=== PATIENT | female | born 1975 | race Caucasian/White ===

== ENCOUNTER 2019-01-08 14:57 | Inpatient (IN) ==
[2019-01-08] MEDS ORDERED: Isovue-370 500 ML BOTTLE IVP ONE (15:56)
--- NOTE | 2019-01-08 15:57 | Emergency Department Note ---
Disposition Clinical Impression: Lymphadenopathy, Abscess, Failure of outpatient treatment Cellulitis Qualifiers: Site of cellulitis: unspecified site Qualified Code(s): L03.90 - Cellulitis, unspecified Disposition: Still a Patient General Adult HPI - General Chief complaint: ED Wound/Laceration Stated complaint: Redness + Swelling @ Groin From [facility] Dr. Mesa Time Seen by Provider: 01/08/19 15:13 Source: patient Limitations: no limitations Nursing Notes Reviewed: Yes Vital Signs Reviewed: Yes - History of Present Illness HPI Narrative: Patient presenting to the ED with the chief complaint of left groin pain and infection. Patient reports that about 3 weeks ago. She noticed some lumps in her left groin. She had the area biopsied after seeing oncology because a CT scan at outside hospital showed that these were enlarged lymph nodes. There were concerned that she may have lymphoma. She has been complaining of night sweats, weight loss, early satiety. States that she has had subjective fever and chills with associated malaise and fatigue. States that despite the biopsy. She has been on Augmentin, which completed a few weeks ago and subsequently doxycycline and has taken 3 days worth without any improvement. She notices more pain and swelling in her groin and is now extending to her pubic symphysis. Denies any abdominal pain. She had had some scant vaginal bleeding, but states her periods are becoming very regular. States that she spoke with oncology and her biopsy results grew MRSA and she was instructed to come to the ER for admission for IV antibiotics. Pain Scale: 7 - Related Data Home Medications Medication Instructions Recorded Confirmed Meloxicam 15 mg PO DAILY 12/31/18 01/09/19 Omeprazole [PriLOSEC] 40 mg PO DAILY 12/31/18 01/09/19 Primidone [Mysoline] 100 mg PO BID 12/31/18 01/09/19 hydroCHLOROthiazide 25 mg PO DAILY 01/09/19 01/09/19 [Hydrochlorothiazide] Previous Rx's Medication Instructions Recorded Oxycodone HCl/Acetaminophen 1 - 2 each PO Q4H PRN 7 Days #84 12/31/18 [Percocet 5-325 mg Tablet] tablet Allergies Allergy/AdvReac Type Severity Reaction Status Date / Time No Known Allergies Allergy Verified 01/09/19 08:31 Review of Systems: As reviewed in the HPI. All other systems reviewed are negative or normal. Past Medical History - Past Medical History Attestation: Yes The following information was validated with the patient. Source: patient Medical history: Reports: hypertension Surgical history: Reports: cholecystectomy Psychiatric history: Reports: no psych history - Social History Smoking Status: Current every day smoker Smokeless Tobacco Status: No Alcohol use: Reports: occasionally Drug use: Reports: none Physical Exam CONSTITUTIONAL: [well appearing, alert and in no acute distress] EYES: [EOMI, clear conjunctiva, PERRLA] HENT: [Normocephalic, atraumatic, moist mucus membranes, normal oropharynx] NECK: [normal inspection, full ROM, trachea midline, no obvious swelling] PULMONARY: [normal lung sounds bilaterally, normal chest rise and fall, no respiratory distress or stridor, no wheezes, no rales, no rhonchi CARDIOVASCULAR: [regular rate, regular rhythm, normal heart sounds, no murmurs, distal extremities are warm and well perfused] GASTROINSTESTINAL: [soft, non-tender, non-rigid, non-distended, no guarding, no rebound, normal bowel sounds] GENITOURINARY/RECTAL: [deferred] NEUROLOGIC: [Alert, oriented x3, normal speech, moves all extremities] EXTREMITIES: [Normal inspection, full ROM, no tenderness, no pedal edema, normal capillary refill] MUSCULOSKELETAL: [no gross deformities, atraumatic] SKIN: [No cyanosis, no diaphoresis, normal color, warm, and the left groin. There are multiple enlarged lymph nodes and possible abscesses, there is no active drainage, one of the areas. Does have some fluctuance which does extend to records the pubic symphysis, there is no ecchymosis or crepitus, there is a small amount of erythema and cellulitis overlying the area.] PSYCHIATRIC: [normal mood and affect] - General Limitations: no limitations General appearance: alert, in no apparent distress Course Course Narrative: Patient will be signed out to the nighttime team pending CT and admission. Antibiotics and cultured order. Lab work is unremarkable. Vital Signs Temperature 98.0 F 01/08/19 14:59 Pulse Rate 99 01/08/19 14:59 Respiratory Rate 18 01/08/19 14:59 Blood Pressure 131/81 01/08/19 14:59 O2 Sat by Pulse Oximetry 99 01/08/19 14:59 Temperature 98.0 F 01/08/19 14:59 Pulse Rate 99 01/08/19 14:59 Respiratory Rate 18 01/08/19 14:59 Blood Pressure 131/81 01/08/19 14:59 O2 Sat by Pulse Oximetry 99 01/08/19 14:59 Oxygen Delivery Oxygen Delivery Room Air Medical Decision Making - Lab Data Result diagrams: 01/09/19 06:00 01/09/19 06:00 Lab Results 01/08/19 01/08/19 01/08/19 Range/Units 16:07 16:07 16:07 WBC 10.8 (4.3-11.1) K/mcL RBC 4.01 (3.82-4.97) M/mcL Hgb 12.5 (11.5-15.4) g/dL Hct 37.8 (35.3-44.9) % MCV 94.3 (83.0-100.0) fL MCH 31.2 (28.0-33.3) pg MCHC 33.1 (31.6-35.5) g/dL RDW 12.4 (11.5-14.5) % Plt Count 392 (140-400) K/mcL MPV 10.1 (9.4-12.4) fL Immature Gran % 1.4 (0-4) % Seg Neutrophils % 70.1 % Lymphocytes % 19.5 % Monocytes % 6.8 % Eosinophils % 1.6 % Basophils % 0.6 % Neutrophils # 7.5 (1.6-8.9) K/mcL Lymphocytes # 2.1 (0.6-4.6) K/mcL Monocytes # 0.7 (0.0-1.3) K/mcL Eosinophils # 0.2 (0.0-0.6) K/mcL Basophils # 0.1 (0.0-0.2) K/mcL Sodium 139 (136-145) mEq/L Potassium 3.3 L (3.5-5.1) mEq/L Chloride 101 (98-107) mEq/L Carbon Dioxide 29 (23-29) mEq/L BUN 13 (6-20) mg/dL Creatinine 0.60 (0.60-1.20) mg/dL Est GFR ( Amer) > 60 (> 60) Est GFR (Non-Af Amer) > 60 (> 60) BUN/Creatinine Ratio 22 (6-26) Glucose 98 (70-105) mg/dL Calculated Osmolality 288 (280-300) Lactic Acid 0.8 (0.5-2.2) mmol/L Calcium 9.5 (8.6-10.3) mg/dL Urine Test (Negative) 01/08/19 Range/Units 16:30 WBC (4.3-11.1) K/mcL RBC (3.82-4.97) M/mcL Hgb (11.5-15.4) g/dL Hct (35.3-44.9) % MCV (83.0-100.0) fL MCH (28.0-33.3) pg MCHC (31.6-35.5) g/dL RDW (11.5-14.5) % Plt Count (140-400) K/mcL MPV (9.4-12.4) fL Immature Gran % (0-4) % Seg Neutrophils % % Lymphocytes % % Monocytes % % Eosinophils % % Basophils % % Neutrophils # (1.6-8.9) K/mcL Lymphocytes # (0.6-4.6) K/mcL Monocytes # (0.0-1.3) K/mcL Eosinophils # (0.0-0.6) K/mcL Basophils # (0.0-0.2) K/mcL Sodium (136-145) mEq/L Potassium (3.5-5.1) mEq/L Chloride (98-107) mEq/L Carbon Dioxide (23-29) mEq/L BUN (6-20) mg/dL Creatinine (0.60-1.20) mg/dL Est GFR ( Amer) (> 60) Est GFR (Non-Af Amer) (> 60) BUN/Creatinine Ratio (6-26) Glucose (70-105) mg/dL Calculated Osmolality (280-300) Lactic Acid (0.5-2.2) mmol/L Calcium (8.6-10.3) mg/dL Urine Test Negative (Negative) Attestation Statement - Attestation Attestation: Resident Attestation: I examined this patient and my medical decision making was reviewed with the Resident Physician. I agree with the documented findings, disp osition and treatment plan as described except to the extent set forth below. We independently had [id number] contact with the patient. Patient presenting from the cancer center for evaluation of left inguinal abscess and cellulitis. Patient with initial CAT scan 3 weeks ago showing lymphadenopathy. Patient seen at the cancer center. Lymph node drained by IR. Drainage felt to be related to abscess. Culture grew back MRSA. Patient has been on doxycycline without improvement. Patient with continued swelling of the left inguinal region. Patient was previously tested for HIV approximately 1 week ago. Negative. Patient with no specific other history. Patient has not had any recent exposure where she feels she would have contacted the sexual transmitted disease. Patient however has had issues along the left extremity including a cellulitis that was left leg as well as swelling to the left knee on which he been previously treated within the last year. Patient states symptoms started approximately an September with nonspecific cellulitis and has had issues with the left leg since. Patient will undergo further evaluation with blood work, cultures, CT scan. Patient will require admission secondary to failed outpatient management. Case signed out to pending CT and admission.
[2019-01-08] MEDS ORDERED: 0.9 % Sodium Chloride 1,000 ML IVC ONE (15:59)
[2019-01-08 16:25] LABS: Basophils # 0.1 K/mcL (0.0-0.2); Basophils % 0.6 %; Eosinophils # 0.2 K/mcL (0.0-0.6); Eosinophils % 1.6 %; Hematocrit 37.8 % (35.3-44.9); Hemoglobin 12.5 g/dL (11.5-15.4); Immature Granulocytes % 1.4 % (0-4); Lymphocytes # 2.1 K/mcL (0.6-4.6); Lymphocytes % 19.5 %; Mean Corpuscular HGB Conc 33.1 g/dL (31.6-35.5); Mean Corpuscular Hemoglobin 31.2 pg (28.0-33.3); Mean Corpuscular Volume 94.3 fL (83.0-100.0); Mean Platelet Volume 10.1 fL (9.4-12.4); Monocytes # 0.7 K/mcL (0.0-1.3); Monocytes % 6.8 %; Neutrophils # 7.5 K/mcL (1.6-8.9); Platelet Count 392 K/mcL (140-400); Red Blood Count 4.01 M/mcL (3.82-4.97); Red Cell Distribution Width 12.4 % (11.5-14.5); Segmented Neutrophils % 70.1 %
[2019-01-08 16:42] LABS: BUN/Creatinine Ratio 22 (6-26); Blood Urea Nitrogen 13 mg/dL (6-20); Calcium 9.5 mg/dL (8.6-10.3); Carbon Dioxide 29 mEq/L (23-29); Chloride 101 mEq/L (98-107); Glucose 98 mg/dL (70-105); Osmolality,Calculated 288 (280-300); Potassium 3.3 mEq/L (3.5-5.1); Sodium 139 mEq/L (136-145); eGFR For Non-African Americans > 60 (> 60)
[2019-01-08 18:19] LABS: Chlamydia Trachomatis DNA Ur NOT DETECTED (Not Detect)
[2019-01-08] MEDS ORDERED: Naloxone 0.4 MG/ML INJ IVP PRN (20:24)
--- NOTE | 2019-01-08 20:26 | Internal Med History&Physical ---
<Delfina Mike E - Last Filed: 01/08/19 21:13> Date of Encounter: 01/08/19 Time of Encounter: 20:00 Internal Medicine - H&P: HPI Chief complaint: groin abcess Admitted From: Home Plans for Post Hospital Care: Home History of present illness: Ms. Gutierrez is a 43 year old female has a history of hypertension, arthritis, essential tremor. Presented today with groin pain and infection that has been ongoing for over 3 weeks. She noticed a lump in her left groin was seen at [facility] thinking it was a hernia. CT scan at that time showed adenitis for which she was started on Augmentin and to follow with her PCP. Her PCP sent her to Dr. Mesa for follow-up. She received a lymph node biopsy on Saturday with a trained approximately 80 mL of fluid from the abscess. Culture indicated this was MRSA. She started on doxycycline to stay as her precaution. The area has become warm, red, raised more so than prior to the biopsy. She does state she has not been feeling well with night sweats, chills, nausea. She had one bout of diarrhea approximately 2 weeks ago after finishing her Augmentin as well as one episode of emesis. She has not had diarrhea or vomiting symptoms but continues with nausea. Patient denies any chest pain, abdominal pain, shortness of breath. Patient denies any radiation of the pain except for to her pubic region. Patient does state that she had cellulitis in September on the left leg for which was put on oral antibiotics and this resolved. No history of MRSA infection. Patient's labs today include a blood cell count 10.8, hypokalemia 3.3 all other labs benign. Urine trichomonas and gonorrhea negative as well as test negative. Abdominal CT showed a moderate-sized abscess of 4.2 cm x 6.9 cm x 7.4 cm the left inguinal region with some mild associated reactive adenopathy. She was given vancomycin 2 g in the ED. Patient to be admitted and surgery to be consulted for possible drainage of abscess. Patient was seen and examined at bedside today. She states her pain with movement is approximately a 7 out of 10. She has been having trouble bending in order to get dressed due to the pain. She does state that she started spotting today after not having a period last month. Family history: Fatherdiabetes brotherdiabetes [facility] Social history: She is currently in every day smoker, occasional alcohol use, denies illicit drug use. Past Med Surg Social Fam HX - Past Medical History Medical history: hypertension Additional medical history: MRSA Psychiatric history: no psych history - Past Surgical History Surgical History: cholecystectomy Additional surgical history: sure procedure - Social History Smoking Status: Current every day smoker Smokeless Tobacco Status: No Alcohol use: occasionally Drug use: none Internal Medicine - H&P: Meds Amoxicillin/Clavulanate [Augmentin] 875 mg PO BIDWM 12/31/18 [History] Meloxicam 15 mg PO DAILY 12/31/18 [History] Omeprazole [PriLOSEC] 40 mg PO DAILY 12/31/18 [History] Ondansetron HCl [Zofran] 4 mg PO Q8HR PRN 12/31/18 [History] Oxycodone HCl/Acetaminophen [Percocet 5-325 mg Tablet] 1 - 2 each PO Q4H PRN 7 Days #84 tablet 12/31/18 [Rx] Primidone [Mysoline] 100 mg PO BID 12/31/18 [History] hydroCHLOROthiazide [Hydrochlorothiazide] 25 mg PO DAILY 12/31/18 [History] Doxycycline 100 mg PO BID 10 Days #20 capsule 01/06/19 [Rx] Allergy/AdvReac Type Severity Reaction Status Date / Time No Known Allergies Allergy Verified 12/31/18 13:41 All Systems PM: A 10-system review of systems was performed and is negative for pertinent findings except as documented above in the HPI. - Constitutional Constitutional: chills, excessive sweating, fatigue, fever(s) (Subjective), night sweats - EENT Eyes: no change in vision Ears: no decreased hearing Nose, mouth and throat: no nasal congestion, no nasal discharge, no nasal obstruction, no sinus pressure, no sore throat - Cardiovascular Cardiovascular ROS IM: no chest pain, no irregular heart rhythm, no palpitations - Respiratory Respiratory: no cough, no dyspnea on exertion, no chest congestion - Gastrointestinal Gastrointestinal: loose stools (One episode 2 weeks ago), nausea, vomiting (One episode 2 weeks ago), no constipation - Genitourinary Genitourinary: light periods (Spotting today after missing period last month), no urinary frequency, no urinary hesitancy, no urinary incontinence, no vaginal discharge Menstruation: period spotting - Musculoskeletal Musculoskeletal ROS IM: arthralgias (Patient has bilateral hip arthritis which she takes meloxicam) - Integumentary Integumentary IM: sores (As per history of present illness) - Neurological Neurological ROS: tremor(s) (Essential tremor) - Constitutional Vitals: Temp Pulse Resp BP Pulse Ox 98.0 F 89 16 127/78 100 01/08/19 14:59 01/08/19 19:10 01/08/19 19:10 01/08/19 19:10 01/08/19 19:10 Exam: General: A 3, answers questions appropriately, mild distress Head: normocephalic, atraumatic Eyes: OSCAR, no icterus Mouth: Mucous membranes moist neck: Midline, no adenopathy Cardio: RRR, no mumurs, rubs, or gallops Respiratory: CTAB, no wheezing, rhonchi, rales Abd: normal bowel sounds, no gaurding or rigidity Extremties: no pedal edema, pulses equal bilaterally, warm Skin: warm, dry, intact left groinarea of induration, erythema approximately 10 cm x 12 cm with a small amount of purulent drainage noted on patient's undergarment no other noticeable adenopathy beyond left groin Internal Med - H&P Results - Labs CBC & Chem 7: 01/08/19 16:07 01/08/19 16:07 Labs: Short CBC 01/08/19 Range/Units 16:07 WBC 10.8 (4.3-11.1) K/mcL Hgb 12.5 (11.5-15.4) g/dL Hct 37.8 (35.3-44.9) % Plt Count 392 (140-400) K/mcL Neutrophils # 7.5 (1.6-8.9) K/mcL BMP 01/08/19 16:07 Sodium 139 Potassium 3.3 L Chloride 101 Carbon Dioxide 29 BUN 13 Creatinine 0.60 Glucose 98 Calcium 9.5 - Impressions ITS Impressions Abdomen/Pelvis CT 01/08/19 15:56 IMPRESSION: Moderate size abscess measuring 4.2 x 6.9 x 7.4 cm in the left inguinal region with some mild associated reactive adenopathy. No acute intra-abdominal or intrapelvic abnormality otherwise noted. D/ / 01/08/2019 18:29:57 Ignacio Escamilla MD / [email or web address] Interpreting Provider: Ignacio Escamilla MD - Assessment and Plan (1) Abscess Current Visit: Yes Status: Acute Assessment and plan: Normal CT showed a moderate-sized abscess 4.2 cm x 6.9 cm x 7.4 cm in the left inguinal region with some mild associated reactive adenopathy Patient had recent biopsy of area on January 05 with reported 80 mL drained from the area Fluid culture positive for MRSA assisted to erythromycin and oxacillin Area has become increasingly red and warm and states it has grown in size Patient given 2 g vancomycin in ED Surgery will be consulted for possible drainage Continue IV coverage for MRSA with vancomycin Pain medication as needed (2) Lymphadenopathy Current Visit: Yes Status: Acute Assessment and plan: Likely reactive due to left groin abscess see treatment as above (3) Failure of outpatient treatment Current Visit: Yes Status: Acute Assessment and plan: Patient received Augmentin 10 days dose 3 weeks ago for groin abscess When this did not resolve biopsy was taken January 05 started on doxycycline Patient has seen worsening of brain abscess in the last 2 days We will continue IV vancomycin Surgery consulted (4) Essential (primary) hypertension Current Visit: Yes Status: Acute Assessment and plan: Patient's blood pressure well controlled on home hydrochlorothiazide We will continue home medications (5) Essential tremor Current Visit: Yes Status: Acute Assessment and plan: Patient currently on medication for essential tremor Continue home medication (6) Arthritis Current Visit: Yes Status: Acute Assessment and plan: Patient states history of perforated She takes meloxicam for this Pain management for abscess should suffice We will hold meloxicam for now (7) DVT prophylaxis Current Visit: Yes Status: Acute Assessment and plan: subcutaneous heparin - Time Spent With Patient Total time spent is greater than 50% in coordination of care (as documented) at patient's floor/unit and/or counseling patient: <GloSrameena - Last Filed: 01/08/19 21:34> Date of Encounter: 01/08/19 Time of Encounter: 20:05 Internal Medicine - H&P: HPI History of present illness: Ms. Gutierrez is a 43 year old female All Systems PM: A 10-system review of systems was performed and is negative for pertinent findings except as documented above in the HPI. - Constitutional Vitals: Temp Pulse Resp BP Pulse Ox 98.1 F 93 17 131/80 98 01/08/19 21:04 01/08/19 21:04 01/08/19 21:04 01/08/19 21:04 01/08/19 21:04 Internal Med - H&P Results - Labs CBC & Chem 7: 01/08/19 16:07 01/08/19 16:07 Labs: Short CBC 01/08/19 Range/Units 16:07 WBC 10.8 (4.3-11.1) K/mcL Hgb 12.5 (11.5-15.4) g/dL Hct 37.8 (35.3-44.9) % Plt Count 392 (140-400) K/mcL Neutrophils # 7.5 (1.6-8.9) K/mcL BMP 01/08/19 16:07 Sodium 139 Potassium 3.3 L Chloride 101 Carbon Dioxide 29 BUN 13 Creatinine 0.60 Glucose 98 Calcium 9.5 - Impressions ITS Impressions Abdomen/Pelvis CT 01/08/19 15:56 IMPRESSION: Moderate size abscess measuring 4.2 x 6.9 x 7.4 cm in the left inguinal region with some mild associated reactive adenopathy. No acute intra-abdominal or intrapelvic abnormality otherwise noted. D/ / 01/08/2019 18:29:57 Ignacio Escamilla MD / [facility] Interpreting Provider: Ignacio Escamilla MD - Time Spent With Patient Total time spent is greater than 50% in coordination of care (as documented) at patient's floor/unit and/or counseling patient: - Attending Attestation I saw evaluated and examined this patient and my medical decision-making was reviewed with the Resident Physician, Delfina Mike. I agree with the documented findings, review of systems, past medical, surgical, social and f amily histories, disposition and treatment plan as described except to any changes set forth below. We independently had [id number] contact with the patient. Patient with a history of hypertension who has been dealing with pain and swelling in her left inguinal region and has completed a course of antibiotics and was started on doxycycline couple of days back presented to the ER as her symptoms did not improve and biopsy cultures grew MRSA. She had a biopsy done at [facility] 2 days back. At that time she was placed on doxycycline. Her symptoms have continued to worsen. She has some subjective fevers. No nausea or vomiting. No abdominal pain. No lower extremity wound for infection but she did have an episode of cellulitis in September which was treated with oral antibiotics with resolution and she gets cellulitis off and on in her left lower extremity. General: Patient is alert, no acute distress, oriented x 3 ENT: Mucous membranes moist Respiratory: Good respiratory effort. Normal breath sounds. No wheezing or crackles. Cardiovascular: Regular rate and rhythm. s1 and s2 normal No clicks, rubs, gallops, or murmurs. No pedal edema Abdomen: Abdomen is soft, nontender. Bowel sounds are present Musculoskeletal: Spontaneously moving all extremities; left inguinal region tenderness with swelling noted. Underlying fluctuance also palpable. Skin: warm, dry, intact. Neuro: Alert oriented x 3 normal cranial nerves, no focal deficits Left inguinal lymphadenitis with abscess: MRSA positive. Will place patient on vancomycin. Consult surgery. High risk for complications. Essential hypertension: Monitor blood pressure. Continue home medications. DVT prophylaxis with subcutaneous heparin
[2019-01-08] MEDS: *HR* OxyCODONE/APAP 5/325 TABLET PO PRN (21:01)
[2019-01-08] MEDS ORDERED: Acetaminophen 325 MG TABLET PO PRN (21:13)
--- NOTE | 2019-01-09 01:50 | AcuteCare Surgery Consult Note ---
Date of Encounter: 01/09/19 Time of Encounter: 01:35 Assessment and Plan (1) Abscess Current Visit: Yes Status: Acute Left lower extremity abscess. Continue IV antibiotics. We will plan operative incision and drainage tomorrow. Keep nothing by mouth. History of Present Illness Consult date: 01/09/19 Reason for consult: other (Left inguinal pain) History of present illness: The patient has left inguinal pain. Evaluated by the emergency department. She was found to have a large abscess in the left inguinal area. The patient states she is been treated for mass in the left inguinal area that is been quite painful over the last few weeks. This was biopsied by radiology. Biopsies negative. The patient subsequently developed a large fluid collection. CAT scan demonstrated a 7 cm abscess. She is in quite a good deal of pain. She presents for incision and drainage of left inguinal abscess. The patient has been treated off and on since September. She developed some left lower extremity cellulitis in September that has since resolved. During that period of left lower extremity erythema she developed what appeared to be left inguinal adenopathy. This has now progressed to likely lymph node necrosis and abscess. Past Med Surg Social Fam HX - Past Medical History Medical history: hypertension Additional medical history: MRSA Psychiatric history: no psych history - Past Surgical History Surgical History: cholecystectomy Additional surgical history: sure procedure - Social History Smoking Status: Current every day smoker Smokeless Tobacco Status: No Alcohol use: occasionally Drug use: none Medications and Allergies Amoxicillin/Clavulanate [Augmentin] 875 mg PO BIDWM 12/31/18 [History] Meloxicam 15 mg PO DAILY 12/31/18 [History] Omeprazole [PriLOSEC] 40 mg PO DAILY 12/31/18 [History] Ondansetron HCl [Zofran] 4 mg PO Q8HR PRN 12/31/18 [History] Oxycodone HCl/Acetaminophen [Percocet 5-325 mg Tablet] 1 - 2 each PO Q4H PRN 7 Days #84 tablet 12/31/18 [Rx] Primidone [Mysoline] 100 mg PO BID 12/31/18 [History] hydroCHLOROthiazide [Hydrochlorothiazide] 25 mg PO DAILY 12/31/18 [History] Doxycycline 100 mg PO BID 10 Days #20 capsule 01/06/19 [Rx] Allergy/AdvReac Type Severity Reaction Status Date / Time No Known Allergies Allergy Verified 12/31/18 13:41 Review of Systems All systems PM: The remainder of the systems were reviewed and are negative General Surgery Exam Initial Vital Signs Temp Pulse Resp BP Pulse Ox 98.0 F 99 18 131/81 99 01/08/19 14:59 01/08/19 14:59 01/08/19 14:59 01/08/19 14:59 01/08/19 14:59 Exam Initial Vital Signs Temp Pulse Resp BP Pulse Ox 98.0 F 99 18 131/81 99 01/08/19 14:59 01/08/19 14:59 01/08/19 14:59 01/08/19 14:59 01/08/19 14:59 - General physical appearance well developed, well nourished, moderate pain - Respiratory normal expansion, normal respiratory effort, clear to percussion, clear to auscultation - Abdomen Abdomen: non tender, bowel sounds (present), surgical scars (none), masses (none) Hernia: none - Genitourinary other (Left inguinal abscess. Exquisitely painful.) - Integumentary no rash, no growths, no abnormal pigmentation, other (There is no evidence of cellulitis of the left lower extremity) - Neurologic CN 2-12 grossly intact, normal coordination, normal sensation - Psychiatric oriented to time, oriented to person, oriented to place, speech is normal, memory intact Results - Labs 01/08/19 16:07 01/08/19 16:07 Abnormal lab results Potassium 3.3 mEq/L (3.5-5.1) L 01/08/19 16:07 Diabetes panel 01/08/19 Range/Units 16:07 Sodium 139 (136-145) mEq/L Potassium 3.3 L (3.5-5.1) mEq/L Chloride 101 (98-107) mEq/L Carbon Dioxide 29 (23-29) mEq/L BUN 13 (6-20) mg/dL Creatinine 0.60 (0.60-1.20) mg/dL Glucose 98 (70-105) mg/dL Calcium 9.5 (8.6-10.3) mg/dL Calcium panel 01/08/19 Range/Units 16:07 Calcium 9.5 (8.6-10.3) mg/dL Pituitary panel 01/08/19 Range/Units 16:07 Sodium 139 (136-145) mEq/L Potassium 3.3 L (3.5-5.1) mEq/L Chloride 101 (98-107) mEq/L Carbon Dioxide 29 (23-29) mEq/L BUN 13 (6-20) mg/dL Creatinine 0.60 (0.60-1.20) mg/dL Glucose 98 (70-105) mg/dL Calcium 9.5 (8.6-10.3) mg/dL Adrenal panel 01/08/19 Range/Units 16:07 Sodium 139 (136-145) mEq/L Potassium 3.3 L (3.5-5.1) mEq/L Chloride 101 (98-107) mEq/L Carbon Dioxide 29 (23-29) mEq/L BUN 13 (6-20) mg/dL Creatinine 0.60 (0.60-1.20) mg/dL Glucose 98 (70-105) mg/dL Calcium 9.5 (8.6-10.3) mg/dL All other labs normal. - Imaging CT scan - abdomen: image reviewed (I personally reviewed the CAT scan. This demonstrates a 7 cm abscess left inguinal area. There is associated adenopathy. I favor necrotic lymph node.) Consult Discharge Plan - Plan Referrals: Mery Ibarra MD [Primary Care Provider] -
[2019-01-09] MEDS: *HR* OxyCODONE/APAP 5/325 TABLET PO PRN ×3 (05:36→18:38)
[2019-01-09] MEDS ORDERED: *HR* Heparin 5,000 UNIT/ML VIAL SQ SCH (06:00)
[2019-01-09 07:53] LABS: Basophils # 0.1 K/mcL (0.0-0.2); Basophils % 0.6 %; Eosinophils # 0.2 K/mcL (0.0-0.6); Eosinophils % 1.7 %; Hematocrit 37.7 % (35.3-44.9); Hemoglobin 12.2 g/dL (11.5-15.4); Immature Granulocytes % 1.4 % (0-4); Lymphocytes # 1.8 K/mcL (0.6-4.6); Lymphocytes % 18.1 %; Mean Corpuscular HGB Conc 32.4 g/dL (31.6-35.5); Mean Corpuscular Volume 95.7 fL (83.0-100.0); Mean Platelet Volume 10.2 fL (9.4-12.4); Monocytes # 0.8 K/mcL (0.0-1.3); Monocytes % 7.8 %; Neutrophils # 7.2 K/mcL (1.6-8.9); Platelet Count 378 K/mcL (140-400); Red Blood Count 3.94 M/mcL (3.82-4.97); Red Cell Distribution Width 12.6 % (11.5-14.5); Segmented Neutrophils % 70.4 %
[2019-01-09 08:13] LABS: Alanine Aminotransferase 8 Units/L (7-52); Albumin 3.2 g/dL (3.5-5.7); Albumin/Globulin Ratio 0.8 (1.1-2.2); Alkaline Phosphatase 69 Units/L (34-104); Aspartate Amino Transferase 8 Units/L (13-39); BUN/Creatinine Ratio 28 (6-26); Bilirubin,Total 0.3 mg/dL (0.3-1.0); Blood Urea Nitrogen 15 mg/dL (6-20); Calcium 9.1 mg/dL (8.6-10.3); Carbon Dioxide 26 mEq/L (23-29); Chloride 104 mEq/L (98-107); Glucose 88 mg/dL (70-105); Magnesium 1.9 mg/dL (1.6-2.6); Osmolality,Calculated 288 (280-300); Phosphorous 3.5 mg/dL (2.7-4.5); Potassium 3.3 mEq/L (3.5-5.1); Sodium 139 mEq/L (136-145); Total Protein 7.2 g/dL (6.4-8.9); eGFR For Non-African Americans > 60 (> 60)
--- NOTE | 2019-01-09 08:35 | Anesthesia Evaluation PreOp ---
Date of Encounter: 01/09/19 Time of Encounter: 08:33 - Past History Planned Operation: I&D Left Groin Abcess Cardiac History: HTN Pulmonary History: Smoker [employer] History: Denies Any Significant HX Other Medical History: Other (MRSA (+)) Anesthesia History: No Prior Anesthetic Complications, Past Anesthesia (GB) : No Test: Negative (01/08/2019) Alcohol Use: occasionally Drug use: none Medications and Allergies Meloxicam 15 mg PO DAILY 12/31/18 [History] Omeprazole [PriLOSEC] 40 mg PO DAILY 12/31/18 [History] Oxycodone HCl/Acetaminophen [Percocet 5-325 mg Tablet] 1 - 2 each PO Q4H PRN 7 Days #84 tablet 12/31/18 [Rx] Primidone [Mysoline] 100 mg PO BID 12/31/18 [History] hydroCHLOROthiazide [Hydrochlorothiazide] 25 mg PO DAILY 01/09/19 [History] Allergy/AdvReac Type Severity Reaction Status Date / Time No Known Allergies Allergy Verified 01/09/19 08:31 - Meds/Allergy Pre-op Review Medications Reviewed: Yes Allergies Reviewed: Yes Beta Blockers on Current Med List: No Anesthesia Results - Labs 01/09/19 06:00 01/09/19 06:00 Laboratory Tests 01/08/19 16:30 Urine Test Negative Anesthesia Exam Vital Signs/O2 Sat, Most Current Temp Pulse Resp BP Pulse Ox 98.2 F 74 16 107/72 98 01/09/19 08:02 01/09/19 08:02 01/09/19 08:02 01/09/19 08:02 01/09/19 08:02 NPO (# of Hours): . 8 HRS Pain Scale: 0 Pain Scale Used: Numeric (1 - 10) - HEENT Pupil (Motor): Pupils equal, EOMI Mallampati: I Teeth: Normal Oral Opening: Greater than 3 - [employer] LOC: Oriented [employer] Motor: Normal RUE, Normal LUE, Normal RLE, Normal LLE, Normal Face [employer] Sensory: Normal: RUE, LUE, RLE, LLE, Face - Cardiac Rhythm: Regular Murmur: None JVD: No Carotid Bruit: No - Pulmonary Breath Sounds: bilateral Clear Respiratory Effort: Symmetrical Anesthesia Assess/Plan ASA Score: 3 Level of consciousness: Cooperative Anesthetic Plan: General Autologous Blood: Yes Monitoring Plan: Standard Monitors Recovery Plan: PACU
[2019-01-09] MEDS ORDERED: *HR* OxyCODONE Immed Rel 5 MG TABLET PO PRN (08:37)
[2019-01-09] MEDS ORDERED: *HR* Labetalol 20 MG/4 ML SYRINGE IVP PRN (08:37)
[2019-01-09] MEDS ORDERED: *HR* HYDROmorphone (PF) 1 MG/ML SYRINGE IVP PRN (08:37)
[2019-01-09] MEDS ORDERED: *HR* Promethazine 25 MG/ML VIAL IVP PRN (08:37)
[2019-01-09] MEDS ORDERED: Albuterol 2.5 MG/3 ML NEBULIZER IH ONE (08:37)
[2019-01-09] MEDS ORDERED: Ondansetron 4 MG/2 ML VIAL IVP ONE (08:37)
[2019-01-09] MEDS ORDERED: Vancomycin 1,000 MG VIAL ONE (09:50)
[2019-01-09] MEDS ORDERED: *HR* Midazolam HCl 2 MG/2 ML VIAL ONE (09:54)
[2019-01-09] MEDS ORDERED: *HR* FentaNYL (PF) 100 MCG/2 ML VIAL ONE (09:54)
[2019-01-09] MEDS ORDERED: Lidocaine -MPF 2% 2 ML VIAL ONE (09:54)
[2019-01-09] MEDS ORDERED: Ondansetron 4 MG/2 ML VIAL ONE (09:54)
[2019-01-09] MEDS ORDERED: *HR* Propofol 200 MG/20 ML VIAL IVP ONE (09:54)
[2019-01-09] MEDS ORDERED: Dexamethasone 4 MG/ML VIAL ONE (09:54)
[2019-01-09] MEDS ORDERED: *HR* Morphine 10 MG/ML VIAL ONE (10:06)
[2019-01-09] MEDS ORDERED: Acetaminophen IV 1,000 MG/100 ML INFUS..BTL ONE ×2 (10:29→10:31)
[2019-01-09] MEDS ORDERED: Ketorolac 30 MG/ML VIAL ONE (10:36)
--- NOTE | 2019-01-09 11:17 | Anesthesia Evaluation Post Op ---
Date of Encounter: 01/09/19 Time of Encounter: 11:20 - Vital Signs Vital Signs: Vital Signs/O2 Sat/Glucose, Most Current Temp Pulse Resp BP Pulse Ox 01/09/19 11:01 74 13 137/77 96 01/09/19 10:51 98.0 F 87 18 135/98 98 01/09/19 08:02 98.2 F 74 16 107/72 98 - Lungs Lungs: Clear Ascult./Percussion - Airway Airway: Non-obstructed - Cardiovascular Regular Rate - Mental Status Mental Status: Alert & Oriented, Answers Appropriately - Pain Pain Scale: 0 - Nausea Vomiting Nausea Vomiting: Not Present - Hydration Hydration: Ice chips - Discharge PostOp Status: Transfer Patient to floor
--- NOTE | 2019-01-09 13:13 | Operative Note ---
Date of procedure: 01/09/19 Pre-op diagnosis: left groin abscess Post-op diagnosis: same Procedure: incision and drainage of left groin abscess excisional debridement of left groin abscess Implants: none Complications: none Anesthesia: GETA Local Anesthetics: 0.5% Sensorcaine HCL SubQ (cc) Surgeon: Wade Fleming Was there an assistant facility manager present: No Estimated blood loss (cc): 15 Specimen: aerobic/anaerobic cultures and tissue culture, biopsy of left groin tissue Condition: stable Disposition: PACU Procedure in Detail: patient was brought into the operating room suite. placed in the supine position. mechanical dvt prophylaxis was placed. The patient underwent smooth induction of anesthesia. The patient was prepped and draped in the usual fashion. Preoperative anitbiotics were given. A timeout was held identifying correct patient pathology procedure and physician. I created a transverse incision in the left groin over the area of greatest redness and fluctuance and immediately there was expulsion of purulent material. I took aerobic and anaerobic swabs. I then opened the abscess cavity to remove the rest of the purulent drainage. I then palpated and was able to appreciate what felt like an enlarged lymph node. I used the halle clamps to grasp it and then used the electrocautery to remove it. I sent more of the left groin tissue for cultures and pathology. I then irrigated the wound with 3L of saline impregnated with 2g of vancomycin. The wound cavity measured 8cm x 6cm x 5cm and debrided down to the subcutaneous tissue. I then concluded the procedure. the patient tolerated the procedure without issue.
[2019-01-09] MEDS ORDERED: Acetaminophen 325 MG TABLET PO PRN (13:20)
[2019-01-09] MEDS ORDERED: Naloxone 0.4 MG/ML INJ IVP PRN (13:20)
[2019-01-09] MEDS: *HR* Heparin 5,000 UNIT/ML VIAL SQ SCH (16:46)
--- NOTE | 2019-01-09 16:47 | Internal Med Progress Note ---
Hospitalist Progress Note - Encounter Date of Encounter: 01/09/19 Time of Encounter: 11:00 - Subjective Interval History: Saw patient after I and D surgery. Patient feels minimal left groin pain. No fever. Otherwise no complaints. - Exam Vitals: Temp Pulse Resp BP Pulse Ox 97.8 F 82 16 122/81 95 01/09/19 12:41 01/09/19 12:41 01/09/19 12:41 01/09/19 12:41 01/09/19 12:41 Exam: Pt is AAO x 3, in NAD HEENT: NC/AT, PERRL Neck: Supple, no JVD, no LAD Lungs: CTA b/l Heart: S1S2, RRR Abd: Soft, nontender, BS present Ext: ROM wnl, no pedal edema, left groin area S/P I/D, well-dressed, no active bleeding identified Neuro: No focal deficit - Assessment and Plan (1) Abscess Current Visit: Yes Status: Acute Assessment and Plan: Patient has been seen by surgery consult. Had I/D surgery. Continue postoperative care and pain management. - Continue Vanco as wound culture shows MRSA - Follow-up blood culture. (2) Cellulitis Current Visit: Yes Status: Acute Assessment and Plan: Management as above (3) DVT prophylaxis Current Visit: Yes Status: Acute Assessment and Plan: Heparin SC (4) Essential (primary) hypertension Current Visit: Yes Status: Acute Assessment and Plan: Continue home medications (5) Lymphadenopathy Current Visit: Yes Status: Acute Assessment and Plan: Likely due to infection. Patient had biopsy as outpatient. Result is pending. - Time Spent with Patient Total time spent is greater than 50% in coordination of care (as documented) at patient's floor/unit and/or counseling patient: 40 minutes Greater than 35 minutes Plan of Care Discussed with: patient Internal Medicine: Result - Labs CBC & Chem 7: 01/09/19 06:00 01/09/19 06:00 Labs: Short CBC 01/09/19 Range/Units 06:00 WBC 10.2 (4.3-11.1) K/mcL Hgb 12.2 (11.5-15.4) g/dL Hct 37.7 (35.3-44.9) % Plt Count 378 (140-400) K/mcL Neutrophils # 7.2 (1.6-8.9) K/mcL BMP 01/09/19 06:00 Sodium 139 Potassium 3.3 L Chloride 104 Carbon Dioxide 26 BUN 15 Creatinine 0.53 L Glucose 88 Calcium 9.1 Liver Function 01/09/19 Range/Units 06:00 Total Bilirubin 0.3 (0.3-1.0) mg/dL AST 8 L (13-39) Units/L ALT 8 (7-52) Units/L Alkaline Phosphatase 69 (34-104) Units/L Albumin 3.2 L (3.5-5.7) g/dL - Impressions Impressions Abdomen/Pelvis CT 01/08/19 15:56 IMPRESSION: Moderate size abscess measuring 4.2 x 6.9 x 7.4 cm in the left inguinal region with some mild associated reactive adenopathy. No acute intra-abdominal or intrapelvic abnormality otherwise noted. D/ / 01/08/2019 18:29:57 Ignacio Escamilla MD / [facility] Interpreting Provider: Ignacio Escamilla MD Consult Discharge Plan - Plan Referrals: Mery Ibarra MD [Primary Care Provider] - ___ (2) Cellulitis Qualifiers: Site of cellulitis: trunk Site of cellulitis of trunk: groin Qualified Code(s): L03.314 - Cellulitis of groin
[2019-01-09] MEDS: Primidone 50 MG TABLET PO SCH (20:52)
[2019-01-10] MEDS: *HR* OxyCODONE/APAP 5/325 TABLET PO PRN ×4 (00:23→23:34)
[2019-01-10 04:53] LABS: Basophils # 0.1 K/mcL (0.0-0.2); Basophils % 0.4 %; Eosinophils # 0.1 K/mcL (0.0-0.6); Eosinophils % 0.4 %; Hematocrit 32.8 % (35.3-44.9); Immature Granulocytes % 1.4 % (0-4); Lymphocytes # 1.8 K/mcL (0.6-4.6); Lymphocytes % 15.5 %; Mean Corpuscular HGB Conc 32.3 g/dL (31.6-35.5); Mean Corpuscular Hemoglobin 31.2 pg (28.0-33.3); Mean Corpuscular Volume 96.5 fL (83.0-100.0); Monocytes # 0.7 K/mcL (0.0-1.3); Monocytes % 6.2 %; Platelet Count 360 K/mcL (140-400); Red Cell Distribution Width 12.6 % (11.5-14.5); Segmented Neutrophils % 76.1 %
[2019-01-10 04:55] LABS: Hemoglobin 10.6 g/dL (11.5-15.4)
[2019-01-10 05:07] LABS: BUN/Creatinine Ratio 30 (6-26); Blood Urea Nitrogen 16 mg/dL (6-20); Calcium 8.4 mg/dL (8.6-10.3); Carbon Dioxide 25 mEq/L (23-29); Chloride 109 mEq/L (98-107); Glucose 116 mg/dL (70-105); Osmolality,Calculated 288 (280-300); Potassium 3.7 mEq/L (3.5-5.1); Sodium 138 mEq/L (136-145); eGFR For Non-African Americans > 60 (> 60)
[2019-01-10] MEDS: *HR* Heparin 5,000 UNIT/ML VIAL SQ SCH ×2 (05:56→17:41)
[2019-01-10] MEDS: Primidone 50 MG TABLET PO SCH ×2 (08:20→21:40)
[2019-01-10] MEDS: hydroCHLOROthiazide 25 MG TABLET PO SCH (08:20)
--- NOTE | 2019-01-10 11:20 | AcuteCareSurgery Progress Note ---
<Casie Reyes N - Last Filed: 01/10/19 11:22> Date of Encounter: 01/10/19 Time of Encounter: 08:30 - Assessment and Plan (1) Abscess Current Visit: Yes Status: Acute POD #1 from I&D and excisional debridement of abscess in left groin. Left groin tissue sent for culture and pathology Incision open and patient was given wound care instructions to wash the area with soap, pack wound with moist gauze and cover with dry dressing daily Follow-up with Dr. Fleming in wound care clinic in 2 weeks Antibiotics not recommended on discharge Patient okay to DC per surgery standpoint Subjective Narrative: Patient is POD #1 from I&D and excisional debridement of the left groin abscess. Tolerated the procedure well and without complications. No fevers, chills, nausea, vomiting, or diarrhea. Appropriate postoperative tenderness. Objective Vital Signs - Last 8 Hours Temp Pulse Resp BP Pulse Ox 01/10/19 08:15 98 01/10/19 07:31 98.2 F 57 16 121/71 98 01/10/19 03:23 97.9 F 73 15 124/74 98 Intake and Output 01/09/19 01/10/19 01/10/19 23:59 07:59 15:59 Intake Total 700 / 1200 400 / 1020 620 / 1020 Balance 700 / 1185 400 / 1020 620 / 1020 Intake: IV Fluids 500 / 1000 500 / 500 Vancocin 1,750 MG In 0.9 % 500 / 500 500 / 500 Sodium Chloride 500 ML @ 333.3 mls/hr IVPB Q12H GER Rx#: [id number] Oral 200 / 200 400 / 520 120 / 520 Other: Meal Breakfast Percent of Meal Consumed 95% # Voids 2 0 # Bowel Movements 0 Weight 103.7 kg Patient Weight 01/10/19 23:59 Weight 103.7 kg - General physical appearance well developed, well nourished - Eyes PERRL, normal ocular movement - ENT normal pinna, normal nares - Neck Neck exam: trachea midline, no lymphadectomy - Respiratory normal expansion, clear to auscultation - Cardiovascular Cardiovascular exam: Present: RRR. Absent: murmurs - Abdomen Abdomen: Present: bowel sounds present, soft Abdominal Tenderness: LLQ - Incision Incision: Present: open - Integumentary no rash - Neurologic CN 2-12 grossly intact - Musculoskeletal normal posture - Psychiatric oriented to time, oriented to person, oriented to place - Labs 01/10/19 04:39 01/10/19 04:39 Diabetes panel 01/10/19 Range/Units 04:39 Sodium 138 (136-145) mEq/L Potassium 3.7 (3.5-5.1) mEq/L Chloride 109 H (98-107) mEq/L Carbon Dioxide 25 (23-29) mEq/L BUN 16 (6-20) mg/dL Creatinine 0.54 L (0.60-1.20) mg/dL Glucose 116 H (70-105) mg/dL Calcium 8.4 L (8.6-10.3) mg/dL Calcium panel 01/10/19 Range/Units 04:39 Calcium 8.4 L (8.6-10.3) mg/dL Pituitary panel 01/10/19 Range/Units 04:39 Sodium 138 (136-145) mEq/L Potassium 3.7 (3.5-5.1) mEq/L Chloride 109 H (98-107) mEq/L Carbon Dioxide 25 (23-29) mEq/L BUN 16 (6-20) mg/dL Creatinine 0.54 L (0.60-1.20) mg/dL Glucose 116 H (70-105) mg/dL Calcium 8.4 L (8.6-10.3) mg/dL Adrenal panel 01/10/19 Range/Units 04:39 Sodium 138 (136-145) mEq/L Potassium 3.7 (3.5-5.1) mEq/L Chloride 109 H (98-107) mEq/L Carbon Dioxide 25 (23-29) mEq/L BUN 16 (6-20) mg/dL Creatinine 0.54 L (0.60-1.20) mg/dL Glucose 116 H (70-105) mg/dL Calcium 8.4 L (8.6-10.3) mg/dL Consult Discharge Plan - Plan Referrals: Mery Ibarra MD [Primary Care Provider] - <Wade Fleming - Last Filed: 01/10/19 16:56> Date of Encounter: 01/10/19 Objective Vital Signs - Last 8 Hours Temp Pulse Resp BP Pulse Ox 01/10/19 16:02 97.8 F 88 17 139/76 97 01/10/19 12:02 97.8 F 65 16 124/81 99 Intake and Output 01/10/19 01/10/19 01/10/19 07:59 15:59 23:59 Intake Total 400 / 1080 680 / 1080 Balance 400 / 1080 680 / 1080 Intake: IV Fluids 500 / 500 Vancocin 1,750 MG In 0.9 % 500 / 500 Sodium Chloride 500 ML @ 333.3 mls/hr IVPB Q12H GER Rx#: [id number] Oral 400 / 580 180 / 580 Other: Meal Lunch Percent of Meal Consumed 25% # Voids 0 2 2 # Bowel Movements 0 0 1 Weight 103.7 kg Patient Weight 01/10/19 23:59 Weight 103.7 kg - Labs 01/10/19 04:39 01/10/19 04:39 Diabetes panel 01/10/19 Range/Units 04:39 Sodium 138 (136-145) mEq/L Potassium 3.7 (3.5-5.1) mEq/L Chloride 109 H (98-107) mEq/L Carbon Dioxide 25 (23-29) mEq/L BUN 16 (6-20) mg/dL Creatinine 0.54 L (0.60-1.20) mg/dL Glucose 116 H (70-105) mg/dL Calcium 8.4 L (8.6-10.3) mg/dL Calcium panel 01/10/19 Range/Units 04:39 Calcium 8.4 L (8.6-10.3) mg/dL Pituitary panel 01/10/19 Range/Units 04:39 Sodium 138 (136-145) mEq/L Potassium 3.7 (3.5-5.1) mEq/L Chloride 109 H (98-107) mEq/L Carbon Dioxide 25 (23-29) mEq/L BUN 16 (6-20) mg/dL Creatinine 0.54 L (0.60-1.20) mg/dL Glucose 116 H (70-105) mg/dL Calcium 8.4 L (8.6-10.3) mg/dL Adrenal panel 01/10/19 Range/Units 04:39 Sodium 138 (136-145) mEq/L Potassium 3.7 (3.5-5.1) mEq/L Chloride 109 H (98-107) mEq/L Carbon Dioxide 25 (23-29) mEq/L BUN 16 (6-20) mg/dL Creatinine 0.54 L (0.60-1.20) mg/dL Glucose 116 H (70-105) mg/dL Calcium 8.4 L (8.6-10.3) mg/dL - Attending Attestation patient seen and examined. i have reviewed all labs, imaging and notes pertinent to this case. I have discussed the case in detail with the resident. i agree with the above assessment and plan.
[2019-01-10] MEDS ORDERED: Aminoglycoside Consult 1 EACH MC ONE (11:54)
--- NOTE | 2019-01-10 14:09 | Internal Med Progress Note ---
Hospitalist Progress Note - Encounter Date of Encounter: 01/10/19 Time of Encounter: 09:00 - Subjective Interval History: Patient has mild pain on left groin area. No fever. No nausea vomiting. - Exam Vitals: Temp Pulse Resp BP Pulse Ox 97.8 F 65 16 124/81 99 01/10/19 12:02 01/10/19 12:02 01/10/19 12:02 01/10/19 12:02 01/10/19 12:02 Exam: Pt is AAO x 3, in NAD HEENT: NC/AT, PERRL Neck: Supple, no JVD, no LAD Lungs: CTA b/l Heart: S1S2, RRR Abd: Soft, nontender, BS present Ext: ROM wnl, no pedal edema, left groin area S/P I/D, well-dressed, no active bleeding identified Neuro: No focal deficit - Assessment and Plan (1) Abscess Current Visit: Yes Status: Acute Assessment and Plan: Patient has been seen by surgery consult. Had I/D surgery. Continue postoperative care and pain management. - Continue Vanco as wound culture shows MRSA - Follow-up blood culture. (2) Cellulitis Current Visit: Yes Status: Acute Assessment and Plan: Management as above (3) DVT prophylaxis Current Visit: Yes Status: Acute Assessment and Plan: Heparin SC (4) Essential (primary) hypertension Current Visit: Yes Status: Acute Assessment and Plan: Continue home medications (5) Lymphadenopathy Current Visit: Yes Status: Acute Assessment and Plan: Likely due to infection. Patient had biopsy as outpatient. Result is pending. - Time Spent with Patient Total time spent is greater than 50% in coordination of care (as documented) at patient's floor/unit and/or counseling patient: 40 minutes Greater than 35 minutes Plan of Care Discussed with: patient Internal Medicine: Result - Labs CBC & Chem 7: 01/10/19 04:39 01/10/19 04:39 Labs: Short CBC 01/10/19 Range/Units 04:39 WBC 11.8 H (4.3-11.1) K/mcL Hgb 10.6 L D (11.5-15.4) g/dL Hct 32.8 L (35.3-44.9) % Plt Count 360 (140-400) K/mcL Neutrophils # 9.0 H (1.6-8.9) K/mcL [facility] 01/10/19 04:39 Sodium 138 Potassium 3.7 Chloride 109 H Carbon Dioxide 25 BUN 16 Creatinine 0.54 L Glucose 116 H Calcium 8.4 L Consult Discharge Plan - Plan Referrals: Mery Ibarra MD [Primary Care Provider] - (2) Cellulitis Qualifiers: Site of cellulitis: trunk Site of cellulitis of trunk: groin Qualified Code(s): L03.314 - Cellulitis of groin
[2019-01-10] MEDS: Nicotine 21 MG PATCH.TD24 TD SCH (16:38)
[2019-01-11 05:24] LABS: Hematocrit 32.9 % (35.3-44.9); Hemoglobin 10.5 g/dL (11.5-15.4); Immature Granulocytes % 2.6 % (0-4); Lymphocytes % 25.1 %; Mean Corpuscular HGB Conc 31.9 g/dL (31.6-35.5); Mean Corpuscular Hemoglobin 30.7 pg (28.0-33.3); Mean Corpuscular Volume 96.2 fL (83.0-100.0); Platelet Count 315 K/mcL (140-400); Red Blood Count 3.42 M/mcL (3.82-4.97); Red Cell Distribution Width 12.7 % (11.5-14.5); Segmented Neutrophils % 61.9 %
[2019-01-11 05:25] LABS: Basophils # 0.1 K/mcL (0.0-0.2); Basophils % 0.6 %; Eosinophils # 0.2 K/mcL (0.0-0.6); Monocytes # 0.6 K/mcL (0.0-1.3); Monocytes % 7.8 %; Neutrophils # 4.8 K/mcL (1.6-8.9)
[2019-01-11 05:42] LABS: BUN/Creatinine Ratio 18 (6-26); Blood Urea Nitrogen 10 mg/dL (6-20); Calcium 8.4 mg/dL (8.6-10.3); Carbon Dioxide 29 mEq/L (23-29); Chloride 104 mEq/L (98-107); Glucose 87 mg/dL (70-105); Osmolality,Calculated 282 (280-300); Potassium 3.7 mEq/L (3.5-5.1); Sodium 137 mEq/L (136-145); eGFR For Non-African Americans > 60 (> 60)
[2019-01-11] MEDS: *HR* Heparin 5,000 UNIT/ML VIAL SQ SCH (05:55)
[2019-01-11] MEDS: *HR* OxyCODONE/APAP 5/325 TABLET PO PRN (06:00)
[2019-01-11] MEDS: Nicotine 21 MG PATCH.TD24 TD SCH (08:33)
[2019-01-11] MEDS: hydroCHLOROthiazide 25 MG TABLET PO SCH (08:35)
[2019-01-11] MEDS: Primidone 50 MG TABLET PO SCH (08:35)
[2019-01-11 08:44] VITALS: BP 115/79
[2019-01-11] MEDS ORDERED: Lactobacillus 1 EACH CAP.SPRINK PO SCH (09:00)
--- NOTE | 2019-01-11 10:52 | Discharge Summary ---
- NOTES TO OUTPATIENT PROVIDER Notes to Outpatient Provider: Continue follow-up with surgery as outpatient. Orders not resulted at time of discharge: Pending orders 01/08/19 16:20 Culture,Blood [BC] Stat 01/09/19 10:30 AFB Culture, Tissue [TB] Routine AFB Smear [TB] Routine Culture,Anaerobic [RM] Routine Fungal Culture [MYC] Routine 01/09/19 10:34 Surgical Pathology [PTH] Routine Date of Encounter: 01/11/19 Time of Encounter: 10:00 - Discharge Diagnosis (1) Abscess Priority: Primary Status: Acute (2) Cellulitis Priority: Primary Status: Acute Qualifiers: Site of cellulitis: trunk Site of cellulitis of trunk: groin Qualified Code(s): L03.314 - Cellulitis of groin (3) DVT prophylaxis Priority: Secondary Status: Acute (4) Essential (primary) hypertension Priority: Secondary Status: Acute (5) Lymphadenopathy Priority: Secondary Status: Acute Hospital course: Ms. Gutierrez is a 43 year old female present to ER for left groin pain. CT shows left groin abscess. Surgical consult saw patient and had I/D, after surgery, patient did recover well. No fever. No signs of sepsis. Leukocytosis resolved. Culture result shows MRSA sensitive to clindamycin. Will DC patient home on by mouth clindamycin. Continue wound care and dressing change. Continue follow-up with surgery as outpatient. Continue follow-up with PCP. I have seen and examined the patient today. Patient feels fine. Minimal pain. No fever. Vitals are stable. Discharge discussed with: patient Time spent discussing smoking cessation with patient: 3 to 10 minutes - Time Spent with Patient Total time spent providing and/or coordinating discharge services: 40 minutes Time spent: Greater than 30 minutes - Discharge Medications Prescriptions: New Clindamycin [Cleocin] 300 mg PO Q8HR 7 Days #42 capsule Lactobacillus [Culturelle] 2 each PO DAILY 14 Days #28 cap.sprink Nicotine Patch [Nicoderm] 21 mg TD DAILY 14 Days #14 patch.[email or web address] Continued Omeprazole [PriLOSEC] 40 mg PO DAILY Primidone [Mysoline] 100 mg PO BID Meloxicam 15 mg PO DAILY Oxycodone HCl/Acetaminophen [Percocet 5-325 mg Tablet] 1 - 2 each PO Q4H PRN 7 Days #84 tablet PRN Reason: Pain hydroCHLOROthiazide [Hydrochlorothiazide] 25 mg PO DAILY Home Medications: Meloxicam 15 mg PO DAILY 12/31/18 [History] Omeprazole [PriLOSEC] 40 mg PO DAILY 12/31/18 [History] Oxycodone HCl/Acetaminophen [Percocet 5-325 mg Tablet] 1 - 2 each PO Q4H PRN 7 Days #84 tablet 12/31/18 [Rx] Primidone [Mysoline] 100 mg PO BID 12/31/18 [History] hydroCHLOROthiazide [Hydrochlorothiazide] 25 mg PO DAILY 01/09/19 [History] Clindamycin [Cleocin] 300 mg PO Q8HR 7 Days #42 capsule 01/11/19 [Rx] Lactobacillus [Culturelle] 2 each PO DAILY 14 Days #28 cap.sprink 01/11/19 [Rx] Nicotine Patch [Nicoderm] 21 mg TD DAILY 14 Days #14 patch.[email or web address] 01/11/19 [Rx] Allergies/Adverse Reactions: Allergy/AdvReac Type Severity Reaction Status Date / Time No Known Allergies Allergy Verified 01/09/19 08:31 Date of admission: 01/08/19 19:50 Primary care physician: Mery Ibarra MD Consults: 01/08/19 21:15 Consult to Surgery [CONS] Routine Consulting Provider: Delfina Mike Reason for Consult: groin abscess, call completed by ED Call Completed: Yes 01/09/19 13:20 Consult to [employer] [CONS] Routine Reason for SW Consult: patient will need home health to assist with dressing changes Discharging clinician: Roselia Lala Anticipated date of discharge: 01/11/19 - Constitutional Vitals: Temp Pulse Resp BP Pulse Ox 97.6 F 82 16 115/79 96 01/11/19 08:43 01/11/19 08:43 01/11/19 08:43 01/11/19 08:43 01/11/19 08:43 Exam: Pt is AAO x 3, in NAD HEENT: NC/AT, PERRL Neck: Supple, no JVD, no LAD Lungs: CTA b/l Heart: S1S2, RRR Abd: Soft, nontender, BS present Ext: ROM wnl, no pedal edema, left groin area S/P I/D, well-dressed, no active bleeding identified Neuro: No focal deficit - Patient Status Disposition: Home, Self-Care Condition: Good Functional capacity at discharge: independent ambulation Overall status at discharge: patient is progressing back to baseline - Discharge Instructions Follow Up With: Mery Ibarra MD [Primary Care Provider] - 01/19/19 - Diet and Activity Activity: increase activity as tolerated Diet: advance to your usual diet, regular diet
== END 2019-01-11 11:55 | disposition home or self-care (01) | DRG 572 ==
LOC: EMEROOARM 14:57 → 3ANU 14:57
PROVIDERS: ADMIT Internal Medicine; ATTEND Internal Medicine